=== PATIENT | female | born 1985 | race Caucasian/White ===

== ENCOUNTER 2020-03-01 11:25 | Inpatient (IN) | payer OTHER, SELFPAY ==
[2020-03-01] MEDS ORDERED: Promethazine HCl 25 MG/ML VIAL IM PRN (11:27)
[2020-03-01] MEDS ORDERED: hydrALAZINE 20 MG/ML VIAL SLOW IVP PRN ×2 (11:27→15:28)
[2020-03-01] MEDS ORDERED: HYDROcodone/Acetaminophen 5/325 mg Tablet PO PRN ×4 (11:27→15:28)
[2020-03-01] MEDS ORDERED: Lidocaine 1% (PF) 30 ML VIAL SC PRN (11:27)
[2020-03-01] MEDS ORDERED: Misoprostol 200 MCG TAB PR PRN (11:27)
[2020-03-01] MEDS ORDERED: Ibuprofen 800 MG TAB PO PRN (11:27)
[2020-03-01] MEDS ORDERED: Diphenoxylate HCl/Atropine Tablet PO PRN ×2 (11:27)
[2020-03-01] MEDS ORDERED: NS / Oxytocin 40 units/1000ml 1,000 ML IV PRN (11:27)
[2020-03-01] MEDS ORDERED: Ondansetron PF 4 MG/2 ML Vial IVP PRN ×2 (11:27→15:28)
[2020-03-01] MEDS ORDERED: Acetaminophen 500 MG TAB PO PRN (11:27)
[2020-03-01] MEDS ORDERED: Butorphanol Tartrate 1 MG/ML VIAL SLOW IVP PRN (11:27)
[2020-03-01] MEDS ORDERED: Docusate 100 MG CAP PO PRN (11:27)
[2020-03-01] MEDS ORDERED: NS w/ Oxytocin 10 units 500 ML IV SCH ×2 (11:30)
[2020-03-01] MEDS ORDERED: Lactated Ringer's 1,000 ML IV SCH (11:30)
[2020-03-01] MEDS ORDERED: NS w/ Oxytocin 10 units 0 ML ONE (11:57)
[2020-03-01] MEDS ORDERED: NS w/ Oxytocin 10 units 500 ML ONE (11:57)
[2020-03-01 12:02] VITALS: BMI 33.2
[2020-03-01 12:24] LABS: Hemoglobin 12.2 g/dL (12.0-16.0); Mean Corpuscular HGB CONC 35.3 g/dL (32.0-36.0); Mean Corpuscular Hemoglobin 30.5 pg (27.0-31.0); Mean Corpuscular Volume 86.4 fL (78.0-98.0); Mean Platelet Volume 9.8 fL (7.4-10.4); Platelet Count 218 thou/uL (130-400); RBC Distribution Width 12.2 % (11.5-14.5); White Blood Cell (WBC) Count 11.9 thou/uL (4.8-10.8)
[2020-03-01 13:04] LABS: Syphilis Antibody Nonreactive (Nonreactive); Syphilis Antibody Index 0.02 S/CO (<1.00 Non-Reactive)
[2020-03-01 13:05] LABS: HBSAg Index 0.15 S/CO (0-0.99); Hep B Surf Ag Non-Reactive S/CO (NonReactive)
[2020-03-01] MEDS ORDERED: Adacel (T-DAP) 0.5 ML SYRINGE IM ONE (15:28)
[2020-03-01] MEDS ORDERED: Lanolin Ointment 7 GM TUBE TOP PRN (15:28)
[2020-03-01] MEDS ORDERED: Benzocaine-Menthol 82.5 ML CAN TOP PRN (15:28)
[2020-03-01] MEDS ORDERED: Bisacodyl 10 MG SUPP PR PRN (15:28)
[2020-03-01] MEDS ORDERED: Milk Of Magnesia 30 ML UDCUP PO PRN (15:28)
[2020-03-01] MEDS ORDERED: Misoprostol 200 MCG TAB VAG PRN (15:28)
[2020-03-01] MEDS ORDERED: Zolpidem Tartrate 5 MG TAB PO PRN (15:28)
[2020-03-01] MEDS ORDERED: Preparation H Ointment 28 GM TUBE PR PRN (15:28)
[2020-03-01] MEDS ORDERED: diphenhydrAMINE 25 MG CAP PO PRN (15:28)
[2020-03-01] MEDS ORDERED: NS / Oxytocin 40 units/1000ml 1,000 ML IV SCH (15:30)
[2020-03-01] MEDS: Ferrous Sulfate 325 MG TAB PO SCH (17:48)
[2020-03-01] MEDS: Docusate Calcium (SURFAK) 240 MG CAP PO SCH (22:19)
[2020-03-01 22:20] VITALS: TEMP 97.9
[2020-03-01] MEDS: Ibuprofen 800 MG TAB PO SCH (22:20)
[2020-03-02 05:50] VITALS: BP 97/52
[2020-03-02 06:26] LABS: Hemoglobin 11.2 g/dL (12.0-16.0); Mean Corpuscular HGB CONC 34.1 g/dL (32.0-36.0); Mean Corpuscular Volume 87.9 fL (78.0-98.0); Mean Platelet Volume 9.7 fL (7.4-10.4); Platelet Count 184 thou/uL (130-400); RBC Distribution Width 12.4 % (11.5-14.5); Red Blood Cell (RBC) Count 3.73 mill/uL (4.20-5.40); White Blood Cell (WBC) Count 14.2 thou/uL (4.8-10.8)
[2020-03-02] MEDS: Docusate Calcium (SURFAK) 240 MG CAP PO SCH (08:33)
[2020-03-02] MEDS: Ferrous Sulfate 325 MG TAB PO SCH (08:33)
[2020-03-02] MEDS ORDERED: Prenatal Vitamin 1 TAB PO SCH (09:00)
[2020-03-02] MEDS: Ibuprofen 800 MG TAB PO SCH (10:50)
[2020-03-02 12:01] LABS: SARS-CoV-2 MS2 Positive; SARS-CoV-2 N Gene Negative; SARS-CoV-2 S Gene Negative; SARS-CoV-2 by NAA Not Detected (NotDetected); SARS-CoV-2 orf1ab Negative
== END 2020-03-02 17:35 | disposition home or self-care (01) | DRG 807 ==
LOC: L&D 11:25
PROVIDERS: ADMIT Obstetrics & Gynecology; ATTEND Obstetrics & Gynecology
PROC: 10E0XZZ Delivery of Products of Conception, External Approach (ICD-10-PCS; principal; 2020-03-01)
PROC: 0KQM0ZZ Repair Perineum Muscle, Open Approach (ICD-10-PCS; 2020-03-01)
DX: O34.211 Maternal care for low transverse scar from previous cesarean delivery (principal); Z37.0 Single live birth; O70.1 Second degree perineal laceration during delivery; Z3A.38 38 weeks gestation of pregnancy; Z20.828 Contact with and (suspected) exposure to other viral communicable diseases
CPT/HCPCS: 36415; 85027; 86780; 86850; 86900; 86901; 87340; 87635; J2001; U0003